=== PATIENT | male | born 1995 | race Caucasian/White ===

== ENCOUNTER 2016-10-21 12:48 | Emergency (ER) | payer OTHER, SELFPAY ==
[2016-10-21] MEDS ORDERED: ALBUTEROL SULFATE 2.5 MG/0.5 ML INH NEB SOLN As Ordered ONE (15:02)
--- NOTE | 2016-10-21 15:24 | REP ---
Chest x-ray: Two views. History: Shortness of breath. . Comparison study: No comparison study. . Findings: The lungs are well inflated and free of infiltrate. The pleural angles are sharp. The heart size is normal. Pulmonary vasculature is not increased. No significant bony abnormality is seen. Impression: Negative chest x-ray. Signed by Deep Matias MD 10/21/2016 03:16 P
--- NOTE | 2016-10-21 15:55 | EDDOCDS ---
Physician Documentation [facility] Name: Chepe Beard Age: 21 yrs Sex: Male : 1995 Arrival Date: 10/21/2016 Time: 12:48 Bed PR Private MD: NO PRIMARY PHYSICIAN, . Disposition: 10/21/16 15:38 Discharged to Home/Self Care. Impression: Shortness of breath. - Condition is Stable. - Discharge Instructions: Shortness of Breath. - Prescriptions for Albuterol Sulfate 2.5 mg /3 mL (0.083 %) Inhalation Solution for Nebulization - inhale 1 unit by NEBULIZATION route 3-4 times daily As needed; 1 box. - Medication Reconciliation, Local Pharmacy Hours form. - Follow up: Emergency Department; When: As needed; Reason: Worsening of conditions. [facility]: [facility]; When: Call to arrange an appointment; Reason: Wound/Symptom Recheck, Recheck today's complaints, Continuance of care, To establish care. - Problem is new. - Symptoms have improved. Historical: - Allergies: No known drug Allergies; - Home Meds: 1. none - PMHx: Asthma; ADD; - PSHx: none; - Social history: Smoking status: Patient states was never smoker of tobacco. No barriers to communication noted, The patient speaks fluent Wolof, Speaks appropriately for age. - Family history: Not pertinent. - : The pt / caregiver states he / she is not on anticoagulants. Home medication list is obtained from the patient. - Exposure Risk Screening:: None identified. Vital Signs: 10/21 12:49 BP 134 / 74; Pulse 61; Resp 18 S; Temp 97.5(O); Pulse Ox 98% on R/A; Weight 74.84 kg / dd6 164.99 lbs (R); Height 5 ft. 10 in. (177.80 cm) (R); 15:51 BP 122 / 78; Pulse 60; Resp 18; Temp 97.0(O); Pulse Ox 97% on R/A; Pain 0/10; jb5 12:49 Body Mass Index 23.67 (74.84 kg, 177.80 cm) dd6 MDM: 14:42 Albuterol 2.5 mg Nebulizer once ordered. dt4 14:42 Call Respiratory ordered. dt4 14:44 Chest, 2 View (pa\E\lat) Ordered. EDMS 14:57 Call Respiratory complete. jf3 15:32 Financial registration complete. 15:49 [facility] Payment Agreement was scanned into [employer] and attached to record. lg Administered Medications: 15:05 Drug: Albuterol 2.5 mg [albuterol sulfate 2.5 mg/0.5 mL solution for nebulization (0.5 jh6 mL)] Route: Nebulizer; Signatures: Dispatcher MedHost EDMS Lele Hendricks, Reg Reg lg Ander Becerril, RN RN dy Yocasta Yang, PA-C PA-C dt4 Bruce Ortega,RN RN jf3 Maldonado Cope jh6 The chart was reviewed and I authenticate all verbal orders and agree with the evaluation and treatment provided.Attachments: 15:49 [facility] Payment Agreement lg MTDD
--- NOTE | 2016-10-21 15:55 | EDDOCDS ---
Nurse's Notes [facility] Name: Chepe Beard Age: 21 yrs Sex: Male : 1995 Arrival Date: 10/21/2016 Time: 12:48 Bed PR Private MD: NO PRIMARY PHYSICIAN, . Diagnosis: Shortness of breath Presentation: 10/21 13:04 Presenting complaint: Patient states: increased SOB with cough for the last 2 weeks. dy symptoms are intermittent. hx of asthma. Adult Sepsis Screening: The patient does not have new or worsening altered mentation. Patient's respiratory rate is less than 22. Systolic blood pressure is greater than 100. Patient has a qSOFA score of 0- Negative Sepsis Screen. Suicide/Homicide risk assessment- the patient denies having any suicidal and/or homicidal ideations and does not present with any other emotional, behavioral or mental health complaints. 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 Transition of care: patient was not received from another setting of care. 13:04 Acuity: TIFFANY Level 4 dy 13:04 Method Of Arrival: Walkin/Carried/Asstd dy Triage Assessment: 13:06 General: Appears in no apparent distress. Pain: Denies pain. HIV screening NA for this dy visit Offered previously. Historical: - Allergies: No known drug Allergies; - Home Meds: 1. none - PMHx: Asthma; ADD; - PSHx: none; - Social history: Smoking status: Patient states was never smoker of tobacco. No barriers to communication noted, The patient speaks fluent Grenadian, Speaks appropriately for age. - Family history: Not pertinent. - : The pt / caregiver states he / she is not on anticoagulants. Home medication list is obtained from the patient. - Exposure Risk Screening:: None identified. Screenin:52 Screening information is obtained from the patient. Fall risk: No risks identified. jf3 Assistance ADL's: requires no assistance with activities of daily living. Abuse/DV Screen: The patient / caregiver reports he/she is: not in a situation that causes fear, pain or injury. Nutritional screening: No deficits noted. Advance Directives: There is no active DNR order. home support is adequate. Assessment: 15:52 General: Appears in no apparent distress, comfortable, Behavior is cooperative. Pain: jf3 Denies pain. Neurological: Level of Consciousness is awake, alert, Oriented to person, place, time. Cardiovascular: Capillary refill < 3 seconds Chest pain is denied. Respiratory: Airway is patent Respiratory effort is even, unlabored, Respiratory pattern is regular, symmetrical. Derm: Skin is pink, warm & dry. Vital Signs: 12:49 BP 134 / 74; Pulse 61; Resp 18 S; Temp 97.5(O); Pulse Ox 98% on R/A; Weight 74.84 kg dd6 (R); Height 5 ft. 10 in. (177.80 cm) (R); 15:51 BP 122 / 78; Pulse 60; Resp 18; Temp 97.0(O); Pulse Ox 97% on R/A; Pain 0/10; jb5 12:49 Body Mass Index 23.67 (74.84 kg, 177.80 cm) dd6 Vitals: 12:49 Log In Time: October 21, 2016 at 12:47. dd6 ED Course: 12:49 Patient visited by Lenard Malin PCA. dd6 12:49 NO PRIMARY PHYSICIAN, . is Private Physician. dd6 12:49 Patient moved to Waiting dd6 12:50 Patient moved to Pre RCE dd6 13:05 Triage Initiated dy 13:50 Patient visited by Samanta Kuhn PCA. jb5 13:50 Patient moved to Triage 3 jf3 14:23 Yocasta Yang PA-C is PHCP. dt4 14:23 Radha Hamilton MD is Attending Physician. dt4 14:23 Patient visited by Yocasta Yang PA-C. dt4 14:48 Patient moved to PR1 / 25 dy 15:29 Patient name changed from Chepe\S\\S\Beard\S\ to Chepe\S\Júnior\S\Beard. EDMS 15:29 Chest, 2 View (pa\E\lat) Returned. EDMS 15:32 Patient visited by Samanta Kuhn PCA. jb5 15:38 [facility] is Referral Physician. dt4 15:49 [facility]CLUDES THE [facility] Payment Agreement was scanned into [employer] and attached to record. lg 15:52 The patient / caregiver is instructed regarding the plan of care and ED course. jf3 15:52 No IV's were initiated during this patient's visit. No procedures done that require jf3 assistance. Administered Medications: 15:05 Drug: Albuterol 2.5 mg [albuterol sulfate 2.5 mg/0.5 mL solution for nebulization (0.5 jh6 mL)] Route: Nebulizer; RT: 15:05 Initial Med Neb Given as ordered Patient was instructed and evaluated on procedure jh6 Patient tolerated procedure well without adverse effect. Respiratory: Airway is patent Respiratory effort is even, unlabored, Respiratory pattern is regular symmetrical, Breath sounds are diminished in right upper lobe, left upper lobe, right middle lobe, left lower lobe, right lower lobe, left posterior upper lobe, right posterior upper lobe, left posterior lower lobe, right posterior middle lobe and right posterior lower lobe. 15:12 Respiratory: Airway is patent Respiratory effort is even, unlabored, Respiratory jh6 pattern is regular symmetrical, Breath sounds are clear in right upper lobe, left upper lobe, right middle lobe, left lower lobe and right lower lobe Breath sounds are diminished in right upper lobe, left upper lobe, right middle lobe, left lower lobe and right lower lobe. Order Results: Radiology Order: Chest, 2 View (pa\E\lat) Test: Chest, 2 View (pa\E\lat) REASON FOR EXAMINATION: Shortness of Breath; Chest x-ray: Two views.; ; History: Shortness of breath. .; ; Comparison study: No comparison study. .; ; Findings: The lungs are well inflated and free of infiltrate. The pleural; angles are sharp. The heart size is normal. Pulmonary vasculature is not; increased. No significant bony abnormality is seen.; ; Impression:; ; Negative chest x-ray.; ; ; Signed by; Deep Matias MD 10/21/2016 03:16 P; Outcome: 15:38 Discharge ordered by Provider. dt4 15:53 Discharge Assessment: Patient awake, alert and oriented x 3. No cognitive and/or jf3 functional deficits noted. Patient verbalized understanding of disposition instructions. patient administered narcotics - no. The following High Risk Discharge criteria are identified: None. Discharged to home ambulatory. Condition: stable. Discharge instructions given to patient, Instructed on discharge instructions, follow up and referral plans. medication usage, Demonstrated understanding of instructions, medications, Pt was receptive of discharge instructions/ teaching. No special radiology studies were completed. Property :Personal belongings accompany Pt. 15:54 Patient left the ED. jf3 Signatures: Dispatcher MedHost EDMS Lele Hendricks, Reg Reg lg Ander Becerril, RN RN dy Samanta Kuhn, CONSOLE ATTENDANT CONSOLE ATTENDANT jb5 Lenard Malin, CONSOLE ATTENDANT CONSOLE ATTENDANT dd6 Maldonado Cope jh6 Yocasta Yang, PA-C PA-C dt4 Bruce Ortega,MALISSA RN jf3 Corrections: (The following items were deleted from the chart) 15:13 15:05 Respiratory: Airway is patent Respiratory effort is even, unlabored, Respiratory jh6 pattern is regular agonal Breath sounds are diminished in right upper lobe, left upper lobe, right middle lobe, left lower lobe, right lower lobe, left posterior upper lobe, right posterior upper lobe, left posterior lower lobe, right posterior middle lobe and right posterior lower lobe jh6 MTDD
--- NOTE | 2016-10-23 16:54 | EDDOCDS ---
Nurse's Notes [facility] Name: Chepe Beard Age: 21 yrs Sex: Male : 1995 Arrival Date: 10/21/2016 Time: 12:48 Bed PR Private MD: NO PRIMARY PHYSICIAN, . Diagnosis: Shortness of breath Presentation: 10/21 13:04 Presenting complaint: Patient states: increased SOB with cough for the last 2 weeks. dy symptoms are intermittent. hx of asthma. Adult Sepsis Screening: The patient does not have new or worsening altered mentation. Patient's respiratory rate is less than 22. Systolic blood pressure is greater than 100. Patient has a qSOFA score of 0- Negative Sepsis Screen. Suicide/Homicide risk assessment- the patient denies having any suicidal and/or homicidal ideations and does not present with any other emotional, behavioral or mental health complaints. 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 Transition of care: patient was not received from another setting of care. 13:04 Acuity: TIFFANY Level 4 dy 13:04 Method Of Arrival: Walkin/Carried/Asstd dy Triage Assessment: 13:06 General: Appears in no apparent distress. Pain: Denies pain. HIV screening NA for this dy visit Offered previously. Historical: - Allergies: No known drug Allergies; - Home Meds: 1. none - PMHx: Asthma; ADD; - PSHx: none; - Social history: Smoking status: Patient states was never smoker of tobacco. No barriers to communication noted, The patient speaks fluent Venezuelan, Speaks appropriately for age. - Family history: Not pertinent. - : The pt / caregiver states he / she is not on anticoagulants. Home medication list is obtained from the patient. - Exposure Risk Screening:: None identified. Screenin:52 Screening information is obtained from the patient. Fall risk: No risks identified. jf3 Assistance ADL's: requires no assistance with activities of daily living. Abuse/DV Screen: The patient / caregiver reports he/she is: not in a situation that causes fear, pain or injury. Nutritional screening: No deficits noted. Advance Directives: There is no active DNR order. home support is adequate. Assessment: 15:52 General: Appears in no apparent distress, comfortable, Behavior is cooperative. Pain: jf3 Denies pain. Neurological: Level of Consciousness is awake, alert, Oriented to person, place, time. Cardiovascular: Capillary refill < 3 seconds Chest pain is denied. Respiratory: Airway is patent Respiratory effort is even, unlabored, Respiratory pattern is regular, symmetrical. Derm: Skin is pink, warm & dry. Vital Signs: 12:49 BP 134 / 74; Pulse 61; Resp 18 S; Temp 97.5(O); Pulse Ox 98% on R/A; Weight 74.84 kg dd6 (R); Height 5 ft. 10 in. (177.80 cm) (R); 15:51 BP 122 / 78; Pulse 60; Resp 18; Temp 97.0(O); Pulse Ox 97% on R/A; Pain 0/10; jb5 12:49 Body Mass Index 23.67 (74.84 kg, 177.80 cm) dd6 Vitals: 12:49 Log In Time: October 21, 2016 at 12:47. dd6 ED Course: 12:49 Patient visited by Lenard Malin PCA. dd6 12:49 NO PRIMARY PHYSICIAN, . is Private Physician. dd6 12:49 Patient moved to Waiting dd6 12:50 Patient moved to Pre RCE dd6 13:05 Triage Initiated dy 13:50 Patient visited by Samanta Kuhn PCA. jb5 13:50 Patient moved to Triage 3 jf3 14:23 Yocasta Yang PA-C is PHCP. dt4 14:23 Radha Hamilton MD is Attending Physician. dt4 14:23 Patient visited by Yocasta Yang PA-C. dt4 14:48 Patient moved to PR1 / 25 dy 15:29 Patient name changed from Chepe\S\\S\Beard\S\ to Chepe\S\Júnior\S\Beard. EDMS 15:29 Chest, 2 View (pa\E\lat) Returned. EDMS 15:32 Patient visited by Samanta Kuhn PCA. jb5 15:38 [facility] is Referral Physician. dt4 15:49 [facility] Payment Agreement was scanned into [employer] and attached to record. lg 15:52 The patient / caregiver is instructed regarding the plan of care and ED course. jf3 15:52 No IV's were initiated during this patient's visit. No procedures done that require jf3 assistance. 10/22 09:02 T-Sheet-- Draft Copy was scanned into [employer] and attached to record. gb Administered Medications: 10/21 15:05 Drug: Albuterol 2.5 mg [albuterol sulfate 2.5 mg/0.5 mL solution for nebulization (0.5 jh6 mL)] Route: Nebulizer; RT: 15:05 Initial Med Neb Given as ordered Patient was instructed and evaluated on procedure jh6 Patient tolerated procedure well without adverse effect. Respiratory: Airway is patent Respiratory effort is even, unlabored, Respiratory pattern is regular symmetrical, Breath sounds are diminished in right upper lobe, left upper lobe, right middle lobe, left lower lobe, right lower lobe, left posterior upper lobe, right posterior upper lobe, left posterior lower lobe, right posterior middle lobe and right posterior lower lobe. 15:12 Respiratory: Airway is patent Respiratory effort is even, unlabored, Respiratory jh6 pattern is regular symmetrical, Breath sounds are clear in right upper lobe, left upper lobe, right middle lobe, left lower lobe and right lower lobe Breath sounds are diminished in right upper lobe, left upper lobe, right middle lobe, left lower lobe and right lower lobe. Order Results: Radiology Order: Chest, 2 View (pa\E\lat) Test: Chest, 2 View (pa\E\lat) REASON FOR EXAMINATION: Shortness of Breath; Chest x-ray: Two views.; ; History: Shortness of breath. .; ; Comparison study: No comparison study. .; ; Findings: The lungs are well inflated and free of infiltrate. The pleural; angles are sharp. The heart size is normal. Pulmonary vasculature is not; increased. No significant bony abnormality is seen.; ; Impression:; ; Negative chest x-ray.; ; ; Signed by; Deep Matias MD 10/21/2016 03:16 P; Outcome: 15:38 Discharge ordered by Provider. dt4 15:53 Discharge Assessment: Patient awake, alert and oriented x 3. No cognitive and/or jf3 functional deficits noted. Patient verbalized understanding of disposition instructions. patient administered narcotics - no. The following High Risk Discharge criteria are identified: None. Discharged to home ambulatory. Condition: stable. Discharge instructions given to patient, Instructed on discharge instructions, follow up and referral plans. medication usage, Demonstrated understanding of instructions, medications, Pt was receptive of discharge instructions/ teaching. No special radiology studies were completed. Property :Personal belongings accompany Pt. 15:54 Patient left the ED. jf3 Signatures: Dispatcher MedHost EDMS Sagrario Anaya, Reg Reg gb Lele Hendricks, Reg Reg lg Ander Becerril, RN RN Samanta Mehta, ENVIRONMENTAL TEST TECHNICIAN ENVIRONMENTAL TEST TECHNICIAN jb5 DeaLenard, ENVIRONMENTAL TEST TECHNICIAN ENVIRONMENTAL TEST TECHNICIAN dd6 Maldonado Cope jh6 Yocasta Yang, PA-C PA-C dt4 Bruce Ortega,RN RN jf3 Corrections: (The following items were deleted from the chart) 15:13 15:05 Respiratory: Airway is patent Respiratory effort is even, unlabored, Respiratory jh6 pattern is regular agonal Breath sounds are diminished in right upper lobe, left upper lobe, right middle lobe, left lower lobe, right lower lobe, left posterior upper lobe, right posterior upper lobe, left posterior lower lobe, right posterior middle lobe and right posterior lower lobe jh6 Chart Complete MTDD
--- NOTE | 2016-10-23 16:54 | EDDOCDS ---
Physician Documentation [facility] Name: Chepe Beard Age: 21 yrs Sex: Male : 1995 Arrival Date: 10/21/2016 Time: 12:48 Bed PR Private MD: NO PRIMARY PHYSICIAN, . Disposition: 10/21/16 15:38 Discharged to Home/Self Care. Impression: Shortness of breath. - Condition is Stable. - Discharge Instructions: Shortness of Breath. - Prescriptions for Albuterol Sulfate 2.5 mg /3 mL (0.083 %) Inhalation Solution for Nebulization - inhale 1 unit by NEBULIZATION route 3-4 times daily As needed; 1 box. - Medication Reconciliation, Local Pharmacy Hours form. - Follow up: Emergency Department; When: As needed; Reason: Worsening of conditions. [facility]; When: Call to arrange an appointment; Reason: Wound/Symptom Recheck, Recheck today's complaints, Continuance of care, To establish care. - Problem is new. - Symptoms have improved. Historical: - Allergies: No known drug Allergies; - Home Meds: 1. none - PMHx: Asthma; ADD; - PSHx: none; - Social history: Smoking status: Patient states was never smoker of tobacco. No barriers to communication noted, The patient speaks fluent Croatian, Speaks appropriately for age. - Family history: Not pertinent. - : The pt / caregiver states he / she is not on anticoagulants. Home medication list is obtained from the patient. - Exposure Risk Screening:: None identified. Vital Signs: 10/21 12:49 BP 134 / 74; Pulse 61; Resp 18 S; Temp 97.5(O); Pulse Ox 98% on R/A; Weight 74.84 kg / dd6 164.99 lbs (R); Height 5 ft. 10 in. (177.80 cm) (R); 15:51 BP 122 / 78; Pulse 60; Resp 18; Temp 97.0(O); Pulse Ox 97% on R/A; Pain 0/10; jb5 12:49 Body Mass Index 23.67 (74.84 kg, 177.80 cm) dd6 MDM: 14:42 Albuterol 2.5 mg Nebulizer once ordered. dt4 14:42 Call Respiratory ordered. dt4 14:44 Chest, 2 View (pa\E\lat) Ordered. EDMS 14:57 Call Respiratory complete. jf3 15:32 Financial registration complete. 15:49 [facility] Payment Agreement was scanned into [employer] and attached to record. 10/22 09:02 T-Sheet-- Draft Copy was scanned into [employer] and attached to record. gb Administered Medications: 10/21 15:05 Drug: Albuterol 2.5 mg [albuterol sulfate 2.5 mg/0.5 mL solution for nebulization (0.5 jh6 mL)] Route: Nebulizer; Signatures: Dispatcher MedHost EDMS Sagrario Anaya, Reg Reg gb Lele Hendricks, Reg Reg lg Ander Becerril, RN RN Yocasta Medrano, PA-C PA-C dt4 Bruce Ortega,RN RN jf3 Maldonado Cope jh6 The chart was reviewed and I authenticate all verbal orders and agree with the evaluation and treatment provided.Attachments: 15:49 [facility] Payment Agreement 10/22 09:02 T-Sheet-- Draft Copy gb Chart Complete MTDD
--- NOTE | 2016-10-23 16:54 | EDDOCDS ---
Physician Documentation [facility] Name: Chepe Beard Age: 21 yrs Sex: Male : 1995 Arrival Date: 10/21/2016 Time: 12:48 Bed PR Private MD: NO PRIMARY PHYSICIAN, . Disposition: 10/21/16 15:38 Discharged to Home/Self Care. Impression: Shortness of breath. - Condition is Stable. - Discharge Instructions: Shortness of Breath. - Prescriptions for Albuterol Sulfate 2.5 mg /3 mL (0.083 %) Inhalation Solution for Nebulization - inhale 1 unit by NEBULIZATION route 3-4 times daily As needed; 1 box. - Medication Reconciliation, Local Pharmacy Hours form. - Follow up: Emergency Department; When: As needed; Reason: Worsening of conditions. Follow [facility]: [facility]; When: Call to arrange an appointment; Reason: Wound/Symptom Recheck, Recheck today's complaints, Continuance of care, To establish care. - Problem is new. - Symptoms have improved. Historical: - Allergies: No known drug Allergies; - Home Meds: 1. none - PMHx: Asthma; ADD; - PSHx: none; - Social history: Smoking status: Patient states was never smoker of tobacco. No barriers to communication noted, The patient speaks fluent Urdu, Speaks appropriately for age. - Family history: Not pertinent. - : The pt / caregiver states he / she is not on anticoagulants. Home medication list is obtained from the patient. - Exposure Risk Screening:: None identified. Vital Signs: 10/21 12:49 BP 134 / 74; Pulse 61; Resp 18 S; Temp 97.5(O); Pulse Ox 98% on R/A; Weight 74.84 kg / dd6 164.99 lbs (R); Height 5 ft. 10 in. (177.80 cm) (R); 15:51 BP 122 / 78; Pulse 60; Resp 18; Temp 97.0(O); Pulse Ox 97% on R/A; Pain 0/10; jb5 12:49 Body Mass Index 23.67 (74.84 kg, 177.80 cm) dd6 MDM: 14:42 Albuterol 2.5 mg Nebulizer once ordered. dt4 14:42 Call Respiratory ordered. dt4 14:44 Chest, 2 View (pa\E\lat) Ordered. EDMS 14:57 Call Respiratory complete. jf3 15:32 Financial registration complete. 15:49 [facility] Payment Agreement was scanned into [employer] and attached to record. 10/22 09:02 T-Sheet-- Draft Copy was scanned into [employer] and attached to record. gb Administered Medications: 10/21 15:05 Drug: Albuterol 2.5 mg [albuterol sulfate 2.5 mg/0.5 mL solution for nebulization (0.5 jh6 mL)] Route: Nebulizer; Signatures: Dispatcher MedHost EDMS Sagrario Anaya, Reg Reg gb Lele Hendricks, Reg Reg lg Ander Becerril, RN RN Yocasta Medrano, PA-C PA-C dt4 Bruce Ortega,RN RN jf3 Maldonado Cope jh6 The chart was reviewed and I authenticate all verbal orders and agree with the evaluation and treatment provided.Attachments: 15:49 [facility] Payment Agreement 10/22 09:02 T-Sheet-- Draft Copy gb Chart Complete MTDD
== END 2016-10-21 15:54 | disposition home or self-care (01) ==
LOC: M ED 12:48
DX: R06.02 Shortness of breath (principal); J45.909 Unspecified asthma, uncomplicated; F90.9 Attention-deficit hyperactivity disorder, unspecified type

== ENCOUNTER 2016-10-26 17:13 | Emergency (ER) | payer SELFPAY ==
[2016-10-26] MEDS ORDERED: predniSONE 20 MG TAB As Ordered ONE (18:45)
--- NOTE | 2016-10-26 19:08 | EDDOCDS ---
Nurse's Notes [facility] Name: Chepe Beard Age: 21 yrs Sex: Male : 1995 Arrival Date: 10/26/2016 Time: 17:13 Bed TR7 Private MD: NO PRIMARY PHYSICIAN, . Diagnosis: Unspecified asthma with (acute) exacerbation Presentation: 10/26 17:17 Presenting complaint: Patient states: Increased SOB seen here 5 days ago for same. mlb1 Adult Sepsis Screening: The patient does not have new or worsening altered mentation. Patient's respiratory rate is less than 22. Systolic blood pressure is greater than 100. Patient has a qSOFA score of 0- Negative Sepsis Screen. Suicide/Homicide risk assessment- the patient denies having any suicidal and/or homicidal ideations and does not present with any other emotional, behavioral or mental health complaints. 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 Transition of care: patient was not received from another setting of care. 17:17 Acuity: TIFFANY Level 4 mlb1 17:17 Method Of Arrival: Walkin/Carried/Asstd mlb1 Triage Assessment: 17:19 General: Appears in no apparent distress, comfortable, Behavior is appropriate for age, mlb1 cooperative. Pain: Location: chest Pain currently is 2 out of 10 on a pain scale. HIV screening NA for this visit Offered previously. Respiratory: Onset: The symptoms/episode began/occurred gradually, Reports pain with cough. Historical: - Allergies: no known allergies; - Home Meds: 1. albuterol sulfate 2.5 mg /3 mL (0.083 %) Inhl nebu 3 mL 4 times per day as needed - PMHx: ADD; Asthma; - PSHx: none; - Social history: Smoking status: Patient states was never smoker of tobacco. No barriers to communication noted, The patient speaks fluent Uruguayan, Speaks appropriately for age. - Family history: Not pertinent. - : The pt / caregiver states he / she is not on anticoagulants. Home medication list is obtained from the patient. - Exposure Risk Screening:: None identified. Screenin:20 Screening information is obtained from the patient. Fall risk: No risks identified. mlb1 Assistance ADL's: requires no assistance with activities of daily living. Abuse/DV Screen: The patient / caregiver reports he/she is: not in a situation that causes fear, pain or injury. Nutritional screening: No deficits noted. Advance Directives: Currently, there is no health care proxy. home support is adequate. Assessment: 18:59 General: Appears in no apparent distress, comfortable, Behavior is appropriate for age, cjh cooperative, Smells of reviewed discharge instructions with patient who denies new problems, needs, or complaints. assessed by PA. Pain: Denies pain. Neurological: Level of Consciousness is awake, alert, Oriented to person, place, time. Cardiovascular: Chest pain is denied. Respiratory: Airway is patent Respiratory effort is even, unlabored, Respiratory pattern is regular, symmetrical, assessed by PA. Derm: Skin is pink, warm & dry. Vital Signs: 17:14 BP 145 / 74; Pulse 81; Resp 18 S; Temp 98.2; Pulse Ox 96% on R/A; Weight 74.84 kg (R); gr2 Height 5 ft. 10 in. (177.80 cm) (R); Pain 2/10; 17:14 Body Mass Index 23.67 (74.84 kg, 177.80 cm) gr2 Vitals: 17:14 Log In Time: October 26, 2016 at 17:14. gr2 ED Course: 17:13 Patient visited by Johnnie Jean. gr2 17:13 Patient moved to Waiting gr2 17:14 NO PRIMARY PHYSICIAN, . is Private Physician. gr2 17:16 Patient visited by Johnnie Jean. gr2 17:16 Patient moved to Pre RCE gr2 17:18 Triage Initiated mlb1 17:20 Patient visited by Woody Miguel RN. mlb1 17:40 Patient moved to Triage 2 ck1 18:04 Patient visited by Nakia May RN. ck1 18:16 Woody Mott PA is PHCP. mo1 18:16 Faustino Tenorio MD is Attending Physician. mo1 18:36 Patient visited by Woody Mott PA. mo1 18:50 [facility] Payment Agreement was scanned into [employer] and attached to record. gjb 18:54 Patient moved to TR7 ck1 18:59 The patient / caregiver is instructed regarding the plan of care and ED course. [facility] 18:59 No IV's were initiated during this patient's visit. No procedures done that require [facility] assistance. Administered Medications: 18:48 Drug: predniSONE 60 mg [prednisone 20 mg tablet (3 tabs)] Route: PO; [facility] Order Results: There are currently no results for this order. Outcome: 18:50 Discharge ordered by Provider. mo1 18:59 Discharge Assessment: Patient awake, alert and oriented x 3. No cognitive and/or [facility] functional deficits noted. Patient verbalized understanding of disposition instructions. patient administered narcotics - no. The following High Risk Discharge criteria are identified: None. Discharged to home ambulatory. Condition: good Condition: stable Condition: improved. Discharge instructions given to patient, Instructed on discharge instructions, follow up and referral plans. medication usage, Demonstrated understanding of instructions, medications, Pt was receptive of discharge instructions/ teaching. Prescriptions given X 1. No special radiology studies were completed. Property :Personal belongings accompany Pt. 19:07 Patient left the ED. [facility] Signatures: Woody Miguel, RN RN mlb1 Nakia MayRN RN ck1 Farnaz VergaraRN RN [facility] Johnnie Jean gr2 Woody Mott PA PA mo1 Ramya Rizvi AUGUSTIN
--- NOTE | 2016-10-26 19:08 | EDDOCDS ---
Physician Documentation [facility] Name: Chepe Beard Age: 21 yrs Sex: Male : 1995 Arrival Date: 10/26/2016 Time: 17:13 Bed TR7 Private MD: NO PRIMARY PHYSICIAN, . Disposition: 10/26/16 18:50 Discharged to Home/Self Care. Impression: Unspecified asthma with (acute) exacerbation. - Condition is Stable. - Discharge Instructions: Asthma, Adult. - Prescriptions for Prednisone 20 mg Oral Tablet - take 2 tablet by ORAL route once daily for 5 days; 10 tablet. - Medication Reconciliation, Local Pharmacy Hours form. - Follow up: Private Physician; When: Call to arrange an appointment; Reason: Continuance of care. - Problem is new. - Symptoms are unchanged. Historical: - Allergies: no known allergies; - Home Meds: 1. albuterol sulfate 2.5 mg /3 mL (0.083 %) Inhl nebu 3 mL 4 times per day as needed - PMHx: ADD; Asthma; - PSHx: none; - Social history: Smoking status: Patient states was never smoker of tobacco. No barriers to communication noted, The patient speaks fluent Japanese, Speaks appropriately for age. - Family history: Not pertinent. - : The pt / caregiver states he / she is not on anticoagulants. Home medication list is obtained from the patient. - Exposure Risk Screening:: None identified. Vital Signs: 10/26 17:14 BP 145 / 74; Pulse 81; Resp 18 S; Temp 98.2; Pulse Ox 96% on R/A; Weight 74.84 kg / gr2 164.99 lbs (R); Height 5 ft. 10 in. (177.80 cm) (R); Pain 2/10; 17:14 Body Mass Index 23.67 (74.84 kg, 177.80 cm) gr2 MDM: 18:39 predniSONE 60 mg PO once; administer with food or milk ordered. mo1 18:48 Financial registration complete. gjb 18:50 [facility] Payment Agreement was scanned into [employer] and attached to record. gjb Administered Medications: 18:48 Drug: predniSONE 60 mg [prednisone 20 mg tablet (3 tabs)] Route: PO; [facility] Signatures: Woody Miguel RN RN mlb1 Farnaz Vergara RN RN cjh Woody Mott PA PA mo1 Ramya Rizvi The chart was reviewed and I authenticate all verbal orders and agree with the evaluation and treatment provided.Attachments: 18:50 [facility] Payment Agreement franklin MTDD
--- NOTE | 2016-10-28 20:08 | EDDOCDS ---
Physician Documentation [facility] Name: Chepe Beard Age: 21 yrs Sex: Male : 1995 Arrival Date: 10/26/2016 Time: 17:13 Bed TR7 Private MD: NO PRIMARY PHYSICIAN, . Disposition: 10/26/16 18:50 Discharged to Home/Self Care. Impression: Unspecified asthma with (acute) exacerbation. - Condition is Stable. - Discharge Instructions: Asthma, Adult. - Prescriptions for Prednisone 20 mg Oral Tablet - take 2 tablet by ORAL route once daily for 5 days; 10 tablet. - Medication Reconciliation, Local Pharmacy Hours form. - Follow up: Private Physician; When: Call to arrange an appointment; Reason: Continuance of care. - Problem is new. - Symptoms are unchanged. Historical: - Allergies: no known allergies; - Home Meds: 1. albuterol sulfate 2.5 mg /3 mL (0.083 %) Inhl nebu 3 mL 4 times per day as needed - PMHx: ADD; Asthma; - PSHx: none; - Social history: Smoking status: Patient states was never smoker of tobacco. No barriers to communication noted, The patient speaks fluent Taiwanese, Speaks appropriately for age. - Family history: Not pertinent. - : The pt / caregiver states he / she is not on anticoagulants. Home medication list is obtained from the patient. - Exposure Risk Screening:: None identified. Vital Signs: 10/26 17:14 BP 145 / 74; Pulse 81; Resp 18 S; Temp 98.2; Pulse Ox 96% on R/A; Weight 74.84 kg / gr2 164.99 lbs (R); Height 5 ft. 10 in. (177.80 cm) (R); Pain 2/10; 17:14 Body Mass Index 23.67 (74.84 kg, 177.80 cm) gr2 MDM: 18:39 predniSONE 60 mg PO once; administer with food or milk ordered. mo1 18:48 Financial registration complete. b 18:50 [facility] Payment Agreement was scanned into [email or web address] and attached to record. gjb 10/27 09:20 T-Sheet-- Draft Copy was scanned into [email or web address] and attached to record. gb Administered Medications: 10/26 18:48 Drug: predniSONE 60 mg [prednisone 20 mg tablet (3 tabs)] Route: PO; [facility] Signatures: Sagrario Anaya, Reg Reg gb Woody Miguel RN RN mlb1 Farnaz VergaraRN RN [facility] Woody Mott PA PA mo1 Ramya Rizvi The chart was reviewed and I authenticate all verbal orders and agree with the evaluation and treatment provided.Attachments: 18:50 [facility] Payment Agreement gjb 10/27 09:20 T-Sheet-- Draft Copy gb Chart Complete MTDD
--- NOTE | 2016-10-28 20:08 | EDDOCDS ---
Physician Documentation [facility] Name: Chepe Beard Age: 21 yrs Sex: Male : 1995 Arrival Date: 10/26/2016 Time: 17:13 Bed TR7 Private MD: NO PRIMARY PHYSICIAN, . Disposition: 10/26/16 18:50 Discharged to Home/Self Care. Impression: Unspecified asthma with (acute) exacerbation. - Condition is Stable. - Discharge Instructions: Asthma, Adult. - Prescriptions for Prednisone 20 mg Oral Tablet - take 2 tablet by ORAL route once daily for 5 days; 10 tablet. - Medication Reconciliation, Local Pharmacy Hours form. - Follow up: Private Physician; When: Call to arrange an appointment; Reason: Continuance of care. - Problem is new. - Symptoms are unchanged. Historical: - Allergies: no known allergies; - Home Meds: 1. albuterol sulfate 2.5 mg /3 mL (0.083 %) Inhl nebu 3 mL 4 times per day as needed - PMHx: ADD; Asthma; - PSHx: none; - Social history: Smoking status: Patient states was never smoker of tobacco. No barriers to communication noted, The patient speaks fluent Afghan, Speaks appropriately for age. - Family history: Not pertinent. - : The pt / caregiver states he / she is not on anticoagulants. Home medication list is obtained from the patient. - Exposure Risk Screening:: None identified. Vital Signs: 10/26 17:14 BP 145 / 74; Pulse 81; Resp 18 S; Temp 98.2; Pulse Ox 96% on R/A; Weight 74.84 kg / gr2 164.99 lbs (R); Height 5 ft. 10 in. (177.80 cm) (R); Pain 2/10; 17:14 Body Mass Index 23.67 (74.84 kg, 177.80 cm) gr2 MDM: 18:39 predniSONE 60 mg PO once; administer with food or milk ordered. mo1 18:48 Financial registration complete. b 18:50 [facility] Payment Agreement was scanned into [employer] [facility] [employer] and attached to record. gjb 10/27 09:20 T-Sheet-- Draft Copy was scanned into [employer] [facility] [employer] and attached to record. gb Administered Medications: 10/26 18:48 Drug: predniSONE 60 mg [prednisone 20 mg tablet (3 tabs)] Route: PO; [facility] Signatures: Sagrario Anaya, Reg Reg gb Woody Miguel RN RN mlb1 Farnaz VergaraRN RN [facility] Woody Mott PA PA mo1 Ramya Rizvi The chart was reviewed and I authenticate all verbal orders and agree with the evaluation and treatment provided.Attachments: 18:50 [facility] Payment Agreement gjb 10/27 09:20 T-Sheet-- Draft Copy gb Chart Complete MTDD
--- NOTE | 2016-10-28 20:09 | EDDOCDS ---
Nurse's Notes [facility] Name: Chepe Beard Age: 21 yrs Sex: Male : 1995 Arrival Date: 10/26/2016 Time: 17:13 Bed TR7 Private MD: NO PRIMARY PHYSICIAN, . Diagnosis: Unspecified asthma with (acute) exacerbation Presentation: 10/26 17:17 Presenting complaint: Patient states: Increased SOB seen here 5 days ago for same. mlb1 Adult Sepsis Screening: The patient does not have new or worsening altered mentation. Patient's respiratory rate is less than 22. Systolic blood pressure is greater than 100. Patient has a qSOFA score of 0- Negative Sepsis Screen. Suicide/Homicide risk assessment- the patient denies having any suicidal and/or homicidal ideations and does not present with any other emotional, behavioral or mental health complaints. Status: Patient is not a medicaid service coordinator or dependent. Transition of care: patient was not received from another setting of care. 17:17 Acuity: TIFFANY Level 4 mlb1 17:17 Method Of Arrival: Walkin/Carried/Asstd mlb1 Triage Assessment: 17:19 General: Appears in no apparent distress, comfortable, Behavior is appropriate for age, mlb1 cooperative. Pain: Location: chest Pain currently is 2 out of 10 on a pain scale. HIV screening NA for this visit Offered previously. Respiratory: Onset: The symptoms/episode began/occurred gradually, Reports pain with cough. Historical: - Allergies: no known allergies; - Home Meds: 1. albuterol sulfate 2.5 mg /3 mL (0.083 %) Inhl nebu 3 mL 4 times per day as needed - PMHx: ADD; Asthma; - PSHx: none; - Social history: Smoking status: Patient states was never smoker of tobacco. No barriers to communication noted, The patient speaks fluent Tristanian, Speaks appropriately for age. - Family history: Not pertinent. - : The pt / caregiver states he / she is not on anticoagulants. Home medication list is obtained from the patient. - Exposure Risk Screening:: None identified. Screenin:20 Screening information is obtained from the patient. Fall risk: No risks identified. mlb1 Assistance ADL's: requires no assistance with activities of daily living. Abuse/DV Screen: The patient / caregiver reports he/she is: not in a situation that causes fear, pain or injury. Nutritional screening: No deficits noted. Advance Directives: Currently, there is no health care proxy. home support is adequate. Assessment: 18:59 General: Appears in no apparent distress, comfortable, Behavior is appropriate for age, cjh cooperative, Smells of reviewed discharge instructions with patient who denies new problems, needs, or complaints. assessed by PA. Pain: Denies pain. Neurological: Level of Consciousness is awake, alert, Oriented to person, place, time. Cardiovascular: Chest pain is denied. Respiratory: Airway is patent Respiratory effort is even, unlabored, Respiratory pattern is regular, symmetrical, assessed by PA. Derm: Skin is pink, warm & dry. Vital Signs: 17:14 BP 145 / 74; Pulse 81; Resp 18 S; Temp 98.2; Pulse Ox 96% on R/A; Weight 74.84 kg (R); gr2 Height 5 ft. 10 in. (177.80 cm) (R); Pain 2/10; 17:14 Body Mass Index 23.67 (74.84 kg, 177.80 cm) gr2 Vitals: 17:14 Log In Time: October 26, 2016 at 17:14. gr2 ED Course: 17:13 Patient visited by Johnnie Jean. gr2 17:13 Patient moved to Waiting gr2 17:14 NO PRIMARY PHYSICIAN, . is Private Physician. gr2 17:16 Patient visited by Johnnie Jean. gr2 17:16 Patient moved to Pre RCE gr2 17:18 Triage Initiated mlb1 17:20 Patient visited by Woody Miguel RN. mlb1 17:40 Patient moved to Triage 2 ck1 18:04 Patient visited by Nakia May RN. ck1 18:16 Woody Mott PA is PHCP. mo1 18:16 Faustino Tenorio MD is Attending Physician. mo1 18:36 Patient visited by Woody Mott PA. mo1 18:50 [facility] Payment Agreement was scanned into [employer] and attached to record. gjb 18:54 Patient moved to TR7 ck1 18:59 The patient / caregiver is instructed regarding the plan of care and ED course. [facility] 18:59 No IV's were initiated during this patient's visit. No procedures done that require [facility] assistance. 10/27 09:20 T-Sheet-- Draft Copy was scanned into [employer] and attached to record. gb Administered Medications: 10/26 18:48 Drug: predniSONE 60 mg [prednisone 20 mg tablet (3 tabs)] Route: PO; [facility] Order Results: There are currently no results for this order. Outcome: 18:50 Discharge ordered by Provider. mo1 18:59 Discharge Assessment: Patient awake, alert and oriented x 3. No cognitive and/or [facility] functional deficits noted. Patient verbalized understanding of disposition instructions. patient administered narcotics - no. The following High Risk Discharge criteria are identified: None. Discharged to home ambulatory. Condition: good Condition: stable Condition: improved. Discharge instructions given to patient, Instructed on discharge instructions, follow up and referral plans. medication usage, Demonstrated understanding of instructions, medications, Pt was receptive of discharge instructions/ teaching. Prescriptions given X 1. No special radiology studies were completed. Property :Personal belongings accompany Pt. 19:07 Patient left the ED. [facility] Signatures: Sagrario Anaya, Reg Reg Woody Miguel, RN RN mlb1 Nakia MayRN RN ck1 Farnaz VergaraRN RN [facility] Johnnie Jean gr2 Woody Mott PA PA mo1 Ramya Rizvi Chart Complete MTDD
== END 2016-10-26 19:07 | disposition home or self-care (01) ==
LOC: M ED 17:13
DX: J45.901 Unspecified asthma with (acute) exacerbation (principal); J20.9 Acute bronchitis, unspecified; F90.9 Attention-deficit hyperactivity disorder, unspecified type

== ENCOUNTER 2018-04-29 16:25 | Emergency (ER) | payer SELFPAY ==
[2018-04-29] MEDS: CEPHALEXIN 500 MG CAP PO (17:57)
== END 2018-04-29 18:05 | disposition home or self-care (01) ==
LOC: M ED 16:25
DX: L02.214 Cutaneous abscess of groin (principal); F17.210 Nicotine dependence, cigarettes, uncomplicated
CPT/HCPCS: 99282

== ENCOUNTER 2018-09-27 22:07 | Emergency (ER) | payer SELFPAY | END 2018-09-28 00:27 | disposition left against medical advice (07) | LOC: M ED 09-28 00:27 | DX: R11.2 Nausea with vomiting, unspecified (principal); R19.7 Diarrhea, unspecified; Z53.21 Procedure and treatment not carried out due to patient leaving prior to being seen by health care provider ==

== ENCOUNTER 2019-04-22 12:19 | Emergency (ER) | payer SELFPAY ==
[~2019-04-22] VITALS: Ht 175.3 cm; Wt 81.8 kg
[2019-04-22 12:19] VITALS: BP 118/65
[~2019-04-22 12:19] MED LIST: KEFL500C17 PO
== END 2019-04-22 15:14 | disposition left against medical advice (07) ==
LOC: M ED 12:19
DX: Z53.29 Procedure and treatment not carried out because of patient's decision for other reasons (principal)

== ENCOUNTER 2019-11-23 23:17 | Emergency (ER) | payer SELFPAY ==
[~2019-11-23] VITALS: Ht 177.8 cm; Wt 75.0 kg
[2019-11-23 23:17] VITALS: BP 155/78
[2019-11-24] MEDS ORDERED: NS 1,000 ML IV ONE (00:45)
[2019-11-24] MEDS ORDERED: ONDANSETRON 4MG/2ML VIAL (J2405) IV ONE (00:45)
[2019-11-24 01:46] LABS: ALBUMIN 4.7 GM/DL (3.2-5.2); BILIRUBIN,DIRECT 0.2 MG/DL (0.0-0.2); BILIRUBIN,TOTAL 1.2 MG/DL (0.2-1.0); TOTAL PROTEIN 8.1 GM/DL (6.4-8.2)
[2019-11-24 01:57] LABS: INFLUENZA A AMPLIFICATION NEGATIVE (NEGATIVE); INFLUENZA B AMPLIFICATION NEGATIVE (NEGATIVE)
[2019-11-24 02:45] LABS: BASO % 0.2 % (0.0-1.0); EOS % 0.3 % (0.0-3.0); HEMATOCRIT 44.1 % (42.0-52.0); HEMOGLOBIN 15.3 g/dl (13.5-17.5); LYMPH # 1.3 10^3/uL (1.5-5.0); LYMPH % 14.9 % (24.0-44.0); MEAN CORPUSCULAR HEMOGLOBIN 30.6 pg (27.0-33.0); MEAN CORPUSCULAR HGB CONC 34.7 g/dl (32.0-36.5); MEAN CORPUSCULAR VOLUME 88.2 fl (80.0-96.0); MONO # 0.6 10^3/uL (0.0-0.8); MONO % 7.2 % (0.0-5.0); NEUTROPHILS # 6.6 10^3/uL (1.5-8.5); NEUTROPHILS % 77.2 % (36.0-66.0); PLATELET COUNT, AUTOMATED 273 10^3/uL (150-450); WHITE BLOOD COUNT 8.6 10^3/uL (4.0-10.0)
[2019-11-24 02:57] LABS: AMORPHOUS SEDIMENT SMALL (NEGATIVE); APPEARANCE, URINE HAZY (CLEAR); BACTERIA, URINE AUTO NEGATIVE (NEGATIVE); BILIRUBIN, URINE AUTO NEGATIVE (NEGATIVE); BLOOD, URINE BLOOD NEGATIVE (NEGATIVE); COLOR, URINE AMBER (YELLOW); GLUCOSE, URINE (UA) AUTO 1+ mg/dL (NEGATIVE); KETONE, URINE AUTO 2+ mg/dL (NEGATIVE); LEUKOCYTE ESTERASE, URINE AUTO NEGATIVE (NEGATIVE); MUCUS, URINE LARGE (NEGATIVE); NITRITE, URINE AUTO NEGATIVE (NEGATIVE); PROTEIN, URINE AUTO 2+ mg/dL (NEGATIVE); RBC, URINE AUTO 2 /HPF (0-3); SPECIFIC GRAVITY URINE AUTO 1.033 (1.002-1.035); SQUAMOUS EPITHELIAL CELL UR AU 0 /HPF (0-6); UROBILINOGEN, URINE AUTO 0.2 mg/dL (0.0-2.0); WBC, URINE AUTO 11 /HPF (0-3)
[2019-11-24] MEDS ORDERED: ONDA4TAB6 PO (03:13)
[2019-11-25] MEDS ORDERED: REGL10TA6 PO (16:33)
== END 2019-11-24 03:17 | disposition home or self-care (01) ==
LOC: M ED 23:17
DX: R11.2 Nausea with vomiting, unspecified (principal); F17.210 Nicotine dependence, cigarettes, uncomplicated
CPT/HCPCS: 80047; 80076; 81001; 83690; 85025; 87502; 96361; 96374; 99283; J2405

== ENCOUNTER 2019-11-25 13:42 | Emergency (ER) | payer SELFPAY ==
[~2019-11-25] VITALS: Ht 177.8 cm; Wt 77.3 kg
[~2019-11-25 13:42] MED LIST changes: +ONDA4TAB6 PO
[2019-11-25] MEDS ORDERED: DICYCLOMINE INJ 20MG/2ML (J0500) IM ONE (14:45)
[2019-11-25] MEDS ORDERED: METOCLOPRAMIDE INJ 10MG/2ML VIAL (J2765) IV ONE (14:45)
[2019-11-25] MEDS ORDERED: NS 1,000 ML IV ONE (14:45)
[2019-11-25 15:05] LABS: BASO % 0.2 % (0.0-1.0); EOS # 0.1 10^3/uL (0.0-0.5); EOS % 0.7 % (0.0-3.0); HEMATOCRIT 46.5 % (42.0-52.0); HEMOGLOBIN 16.1 g/dl (13.5-17.5); LYMPH # 1.5 10^3/uL (1.5-5.0); LYMPH % 13.4 % (24.0-44.0); MEAN CORPUSCULAR HEMOGLOBIN 29.9 pg (27.0-33.0); MEAN CORPUSCULAR HGB CONC 34.6 g/dl (32.0-36.5); MEAN CORPUSCULAR VOLUME 86.3 fl (80.0-96.0); MONO # 0.8 10^3/uL (0.0-0.8); MONO % 7.6 % (0.0-5.0); NEUTROPHILS # 8.6 10^3/uL (1.5-8.5); NEUTROPHILS % 77.8 % (36.0-66.0); PLATELET COUNT, AUTOMATED 278 10^3/uL (150-450); RED BLOOD COUNT 5.39 10^6/uL (4.30-6.10)
--- NOTE | 2019-11-25 15:14 | REP ---
Clinical: Abdominal pain. Technique: Two supine views of the abdomen and pelvis. Findings: Bowel gas pattern is nonspecific. No organomegaly. No abnormal calcifications. Skeletal structures are intact. Impression: Normal, nonspecific abdominal radiograph. Electronically Signed by Devyn Kaplan MD 11/25/2019 03:05 P
[2019-11-25 15:37] LABS: ALBUMIN 4.1 GM/DL (3.2-5.2); BILIRUBIN,DIRECT 0.2 MG/DL (0.0-0.2); TOTAL PROTEIN 7.2 GM/DL (6.4-8.2)
[2019-11-25 15:45] VITALS: BP 133/75
[2019-11-25] MEDS ORDERED: REGL10TA6 PO (16:33)
== END 2019-11-25 16:35 | disposition home or self-care (01) ==
LOC: M ED 13:42
DX: K52.9 Noninfective gastroenteritis and colitis, unspecified (principal); J45.909 Unspecified asthma, uncomplicated
CPT/HCPCS: 74018; 80047; 80076; 83690; 85025; 96361; 96372; 96374; 99284; J0500; J2765

== ENCOUNTER 2021-08-27 21:25 | Emergency (ER) | payer SELFPAY ==
[~2021-08-27] VITALS: Ht 177.8 cm; Wt 78.2 kg
[2021-08-27 21:25] VITALS: BP 124/83
[~2021-08-27 21:25] MED LIST changes: +REGL10TA6 PO
--- OUTSIDE RECORDS SUMMARY | 2021-08-27 21:33 | CCD ---
Author Author [facility] Organization [facility] Address Unknown Phone Unavailable Support Name Relationship Address Phone MIDAS Next Of Kin [address] [place] [address] FXCAPRARA* Next Of Kin [address] [place] [address] CONVERGYS Next Of Kin [address] [place] [address] ST Next Of Kin Unknown Unavailable PEG ANGELA Next Of Kin [address] [place] [address] UE Next Of Kin Unknown Unavailable TIFF RUVALCABANETH Next Of Kin [address] [facility] [address] Re-disclosure Warning The records that you are about to access may contain information from federally-assisted alcohol or drug abuse programs. If such information is present, then the following federally mandated warning applies: This information has been disclosed to you from records protected by federal confidentiality rules (42 CFR part 2). The federal rules prohibit you from making any further disclosure of this information unless further disclosure is expressly permitted by the written consent of the person to whom it pertains or as otherwise permitted by 42 CFR part 2. A general authorization for the release of medical or other information is NOT sufficient for this purpose. The Federal rules restrict any use of the information to criminally investigate or prosecute any alcohol or drug abuse patient.The records that you are about to access may contain highly sensitive health information, the redisclosure of which is protected by Article 27-F of the [facility] Public Health law. If you continue you may have access to information: Regarding HIV / AIDS; Provided by facilities licensed or operated by the [facility] Office of Mental Health; or Provided by the [facility] Office for People With Developmental Disabilities. If such information is present, then the following [facility] mandated warning applies: This information has been disclosed to you from confidential records which are protected by state law. State law prohibits you from making any further disclosure of this information without the specific written consent of the person to whom it pertains, or as otherwise permitted by law. Any unauthorized further disclosure in violation of state law may result in a fine or usp sentence or both. A general authorization for the release of medical or other information is NOT sufficient authorization for further disc losure. Medications No Information Insurance Providers Payer name Policy type / Coverage type Policy ID Covered constitution party ID Covered constitution party's relationship to white Policy White Plan Information SELF PAY ONLY [id number] SP [id number] [facility] O [id number] S [id number] [facility] [id number] FA2 [id number] SELF PAY SP [id number] S [id number] [facility]/P [id number] 19 [id number] O BLUE [id number] SP [id number] Problems, Conditions, and Diagnoses No Information Surgeries/Procedures No Information Results No Information Social History No Information
--- OUTSIDE RECORDS SUMMARY | 2021-08-27 22:35 | CCD ---
Author Author [facility] Organization [facility] Address Unknown Phone Unavailable Support Name Relationship Address Phone MIDAS Next Of Kin [address] [place] [address] FXCAPRARA* Next Of Kin [address] [place] [address] CONVERGYS Next Of Kin [address] [place] [address] ST Next Of Kin Unknown Unavailable PEG ANGELA Next Of Kin [address] [place] [address] UE Next Of Kin Unknown Unavailable TIFF RUVALCABANETH Next Of Kin [address] [facility] [address] Re-disclosure Warning The records that you are [...] is protected by Article 27-F of the [facility] Public Health law. If you continue you may have access to information: Regarding HIV / AIDS; Provided by facilities licensed or operated by the [facility] Office of Mental Health; or Provided by the [facility] Office for People With Developmental Disabilities. If such information is present, then the following [facility] mandated warning applies: This information has been [...] law may result in a fine or correction sentence or both. A general authorization for the release of medical or other information is NOT sufficient authorization for further disc losure. Medications No Information Insurance Providers Payer name Policy type / Coverage type Policy ID Covered republican ID Covered republican's relationship to white Policy White Plan Information SELF PAY ONLY [id number] SP [id number] [facility] O [id number] S [id number] [facility] [id number] FA2 [id number] SELF PAY SP [id number] S [id number] [facility]/P [id number] 19 [id number] O BLUE [id number] SP [id number] Problems, Conditions, and Diagnoses No Information Surgeries/Procedures No Information Results No Information Social History No Information
== END 2021-08-27 22:26 | disposition left against medical advice (07) ==
LOC: M ED 21:25
DX: Z53.21 Procedure and treatment not carried out due to patient leaving prior to being seen by health care provider (principal)